=== PATIENT | female | born 1980 | race Caucasian/White ===

== ENCOUNTER 2022-08-20 17:08 | Observation (INO) ==
--- NOTE | 2022-08-20 18:17 | XRay Report ---
SINGLE VIEW CHEST CLINICAL HISTORY: Tachycardia FINDINGS: An AP, portable, upright chest radiograph is obtained. No prior studies are available for c omparison at the time of dictation. The cardiomediastinal silhouette is unremarkable. The lungs and p leural spaces are clear. No pneumothorax is seen. The bony thorax is grossly intact. IMPRESSION: No active disease in the chest. ACT 112: Negative or not required by law. Electronically signed by: Quincy Gonzalez M.D. 08/20/2022 6:16 PM
[2022-08-20 18:20] LABS: Hematocrit (blood only) 25.2 % (37.0-47.0); Hemoglobin 7.9 g/dl (12.0-16.0); Mean Corpuscular Hemoglobin 24.8 pg (25.0-34.0); Mean Corpuscular Hgb Conc 31.3 g/dL (32.0-36.0); Mean Corpuscular Volume 79.2 fL (80.0-100.0); Mean Platelet Volume 9.4 fL (9.4-12.4); Platelet Count 354 K/uL (130-400); RDW Coefficient of Variation 15.5 % (11.5-14.5); RDW Standard Deviation 45.1 fL (36.4-46.3); Red Blood Count 3.18 M/uL (4.20-5.40); White Blood Count 4.99 K/ul (4.8-10.8)
[2022-08-20] MEDS ORDERED: SODIUM CHLORIDE 0.9% 250 ML IV PRN (18:22)
[2022-08-20] MEDS ORDERED: SODIUM CHLORIDE 0.9% 1000ML 1,000 ML IV ONE (18:22)
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
[2022-08-20 18:41] LABS: Albumin Globulin Ratio 1.8 (0.9-2); Albumin Level 4.4 gm/dl (3.4-5.0); BUN Creatinine Ratio 11.9 (10-20); Bilirubin,Total 0.2 mg/dl (0.2-1.0); Calcium 9.2 mg/dl (8.5-10.1); Creatinine Clr Calc Pharmacy 78.4 ml/min; Est GFR (African American) 74.1 ml/min; Est GFR (Non-African American) 63.9 ml/min; Globulin 2.5 gm/dl (2.5-4.0); Magnesium 2.3 mg/dl (1.7-2.4); Potassium 3.5 mmol/L (3.5-5.1); Total Protein 6.9 gm/dl (6.0-8.3)
[2022-08-20 19:09] LABS: Acetaminophen 3 ug/ml (10-30); Salicylate < 3.0 mg/dl (3.0-30)
[2022-08-20 19:20] LABS: Basophils # (auto) 0.03 K/uL (0-0.2); Basophils % (auto) 0.6 %; Eosinophils # (auto) 0.06 K/uL (0-0.50); Eosinophils % (auto) 1.2 %; Hypochromasia Present; Immature Granulocytes # (auto) 0.02 K/uL (0.01-0.20); Immature Granulocytes % (auto) 0.4 %; Lymphocytes # (auto) 1.96 K/uL (1.2-3.4); Lymphocytes % (auto) 39.3 %; Monocytes # (auto) 0.46 K/uL (0.11-0.59); Monocytes % (auto) 9.2 %; Neutrophils # (auto) 2.46 K/uL (1.40-6.50); Neutrophils % (auto) 49.3 %
[2022-08-20 19:39] LABS: Partial Thromboplastin Ratio 0.8; Partial Thromboplastin Time 22.7 Seconds (21.0-31.0)
[2022-08-20 19:55] LABS: Appearance Urine Clear (Clear); Bacteria Urine Automated Negative (Negative); Bilirubin Urine Negative (Negative); Blood Urine 3+ (Negative); Color Urine Dark Yellow; Glucose Urine UA Negative (Negative); Ketones Urine Negative (Negative); Leukocyte Esterase Urine Negative (Negative); Nitrite Urine Negative (Negative); Protein Urine Trace (Negative); RBC Urine Automated >30 /hpf (0-4); Specific Gravity Urine 1.011 (1.000-1.030); Urobilinogen Urine Negative (Negative)
[2022-08-20 19:59] LABS: Pregnancy Test, Serum Negative (Negative)
[2022-08-20 20:24] LABS: Influenza A virus by PCR Negative (Neg); Influenza B virus by PCR Negative (Neg); RSV by PCR Negative (Neg); SARS CoV2 RNA(COVID-19) Ceph NEGATIVE (Negative)
--- NOTE | 2022-08-20 20:28 | Ultrasound Report ---
PELVIC ULTRASOUND, TRANSABDOMINAL AND TRANSVAGINAL HISTORY: anemia, vag bleeding COMPARISON: None. FINDINGS: Uterus: 7.8 x 4.8 x 4.9 cm. The uterus is retroflexed. There is a 15 mm heterogeneous lesion within t he right anterior uterus and a 15 mm hyperechoic lesion within the posterior uterus consistent with f ibroids. Endometrial stripe: 7 mm in thickness. Right ovary: Normal in size and demonstrates normal color flow. A few small follicles/cysts with the largest measuring 2.3 cm. Left ovary: Normal in size and demonstrates normal color flow. A few small follicles/cysts. A 26 x 13 x 10 mm hyperechoic focus within the left ovary may represent a collapsed cyst. Miscellaneous:No pelvic free fluid. IMPRESSION: 1. There are 2 uterine fibroids measuring 15 mm. 2. Normal endometrium. 3. A few small bilateral ovarian follicles/cysts. ACT 112: Negative or not required by law. Electronically signed by: Efrem Flores M.D. 08/20/2022 8:25 PM
[2022-08-20 20:37] LABS: Amphetamines+Metham, Urine Pos (Neg); Barbiturates, Urine Neg (Neg); Benzodiazepine, Urine Neg (Neg); Cocaine, Urine Neg (Neg); MDMA (Ecstacy), Urine Neg (Neg); Methadone, Urine Neg (Neg); Opiate, Urine Neg (Neg); Phencyclidine, Urine Neg (Neg)
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
[2022-08-21] MEDS: LACTATED RINGER'S 1,000 ML IV SCH ×2 (01:58→09:20)
[2022-08-21] MEDS ORDERED: lamoTRIgine 100 MG TAB PO SCH ×3 (02:00→21:00)
[2022-08-21 02:32] LABS: Magnesium 2.5 mg/dl (1.7-2.4); Phosphorus 3.4 mg/dl (2.5-4.9)
[2022-08-21 07:06] LABS: Hematocrit (blood only) 23.4 % (37.0-47.0); Hemoglobin 7.3 g/dl (12.0-16.0); Mean Corpuscular Hemoglobin 25.3 pg (25.0-34.0); Mean Corpuscular Hgb Conc 31.2 g/dL (32.0-36.0); Mean Platelet Volume 9.1 fL (9.4-12.4); Platelet Count 307 K/uL (130-400); RDW Coefficient of Variation 15.6 % (11.5-14.5); RDW Standard Deviation 46.1 fL (36.4-46.3); Red Blood Count 2.89 M/uL (4.20-5.40); White Blood Count 4.01 K/ul (4.8-10.8)
[2022-08-21 07:25] LABS: Creatinine Clr Calc Pharmacy 106.7 ml/min; Est GFR (African American) 118.3 ml/min; Est GFR (Non-African American) 102.1 ml/min
[2022-08-21] MEDS ORDERED: AMPHETAMINE ASP/SULF/DEXTRAMPH 10 MG TAB PO SCH (08:00)
[2022-08-21 08:02] LABS: BUN Creatinine Ratio 8.1 (10-20); Calcium 8.8 mg/dl (8.5-10.1); Potassium 3.8 mmol/L (3.5-5.1)
--- NOTE | 2022-08-21 08:06 | CT Scan Report ---
CT OF THE HEAD WITHOUT CONTRAST CLINICAL HISTORY: Dizziness. COMPARISON STUDY: No previous studies for comparison. CT DOSE: 537.48 mGy.cm TECHNIQUE: Helical axial images of the head were obtained without IV contrast. Automated exposure con trol was utilized for the study. A dose lowering technique was utilized adhering to the principles o f ALARA. FINDINGS: No acute intracranial hemorrhage, midline shift or mass effect is present. The ventricular system is unremarkable. The basal cisterns are patent. No extra-axial collections are present. There are no findings to suggest acute dural sinus thrombosis or acute territorial infarct. No significant calvarial abnormalities are present. Visualized portions of the sinuses and mastoid air cells are anna ar. IMPRESSION: No acute intracranial findings. ACT 112: Negative or not required by law. Electronically signed by: Lisandro Perez M.D. 08/21/2022 8:05 AM
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
--- NOTE | 2022-08-21 10:41 | Electrocardiogram Report ---
Test Reason : Blood Pressure : / mmHG Vent. Rate : 122 BPM Atrial Rate : 122 BPM P-R Int : 160 ms QRS Dur : 094 ms QT Int : 332 ms P-R-T Axes : 074 085 058 degrees QTc Int : 473 ms Sinus tachycardia Otherwise normal ECG No previous ECGs available Confirmed by Tan Yi ([id number] on 08/21/2022 10:41:25 AM Referred By: REFERRED SELF Confirmed By:Jose Yi
[2022-08-23 12:23] LABS: Amphetamine Urine, Confirm >15000 ng/mL (<250); Methamphetamine, Ur Confirm NEGATIVE ng/mL (<250)
== END 2022-08-21 11:46 | disposition home or self-care (01) ==
LOC: ED 17:08 → 2N 22:43 → INTOOBSV 22:43 → SUATTDRO 22:43 → 2N 08-21 01:19